=== PATIENT | male | born 1945 | race Caucasian/White ===

== ENCOUNTER 2016-07-22 20:51 | Observation (INO) | payer MEDICARE, OTHER ==
[~2016-07-22] VITALS: Ht 180.3 cm; Wt 127.0 kg
[~2016-07-22 20:51] MED LIST: BUME2TAB PO; HYDR-3580 PO; MONT10TA2 PO; POTA20IN3 PO; RIVA10 PO; TAMS0.4C67 PO; Z.0.COMMODE-3:1; Z.0.WALKERFRONT
[2016-07-22 21:00] VITALS: BP 140/77; PULSE 73; RESP 18; TEMP 98.5; O2SAT 94
[2016-07-22 21:23] VITALS: BP 137/73; PULSE 65; RESP 17; O2SAT 95
[2016-07-22 21:30] VITALS: BP 137/73; PULSE 66; RESP 18; O2SAT 96
[2016-07-22] MEDS ORDERED: SODIUM CHLORIDE 0.9% FLUSH 10 ML FLUSH IVF PRN (21:30)
--- NOTE | 2016-07-22 21:30 | PD ---
HPI Chief Complaint: Headache Time Seen by Provider: 21:13 Travel History International Travel<30 days: No Contact w/Intl Traveler<30days: No Traveled to known affect area: No History of Present Illness HPI The patient is a 71-year-old male that complains of a right scalp head pain since yesterday. He states it was of gradual onset and gradually worsening. He denies any visual problems like scotomata but may have had slight transient blurred vision in the right eye. He is not sure about the blurred vision. He has never had this type of pain before. He is not on any anticoagulants. He denies any head trauma. PFSH Past Medical History Cancer: No Cardiovascular Problems: No Diabetes: No Diminished Hearing: No Endocrine: No Genitourinary: Yes Hepatitis: No Hiatal Hernia: No Immune Disorder: No Musculoskeletal: Yes (broken ribs ribs and clavical in the past from trauma) Neurologic: No Psychiatric: No Reproductive: No Respiratory: Yes (sleep apnea , uses a machine ) Thyroid Disease: No Past Surgical History Abdominal Surgery: Yes (GALLBLADDER) AICD: No Body Medical Devices: SCREWS IN L ANKLE Cholecystectomy: Yes Joint Replacement: Yes (R HIP ) Oral Surgery: Yes (T & A) Pacemaker: No Thoracic Surgery: Yes ( TRAUMATIC PNEUMO)) Tonsillectomy: Yes Social History Alcohol Use: No Tobacco Use: No Substance Use: No Allergies-Medications (Allergen,Severity, Reaction): Coded Allergies: Quinolones (Verified Allergy, Intermediate, 07/22/16) Avelox (Verified Allergy, Mild, RASH, ITCHING, 07/22/16) Shellfish (Verified Allergy, Mild, ITCHING, THROAT SWELLING, 07/22/16) Reported Meds & Prescriptions Reported Meds & Active Scripts Active Walker Front Wheel (Walkerfront) Device 1 Unit Commode-3:1 Device 1 Unit Xarelto 10 Mg Tab (Rivaroxaban) 10 Mg Tab 10 Mg PO Q24H Hydrocodone/Acetaminophen 7.5 mg/325 mg 1 Tab 1 Tab PO Q4H PRN Reported Singulair (Montelukast Sodium) 10 Mg Tab 10 Mg PO DAILY Bumetanide 2 mg (Bumetanide) 2 Mg Tab 2 Mg PO DAILY Potassium Chloride CR 20 meq 20 Meq Tab 20 Meq PO DAILY PRN TAKE WITH LASIX Flomax (Tamsulosin HCl) 0.4 Mg Cap 0.4 Mg PO DAILY Review of Systems Except as stated in HPI: all other systems reviewed are Neg Physical Exam Narrative GENERAL: The patient is alert, oriented 3 and slight apparent distress with his right facial pain. His vital signs are normal. SKIN: Focused skin assessment warm/dry. HEAD: Atraumatic. Normocephalic. EYES: Pupils equal and round. No scleral icterus. No injection or drainage. ENT: No nasal bleeding or discharge. Mucous membranes pink and moist. No TMJ tenderness is present in the tympanic membranes are clear and the throat is clear. NECK: Trachea midline. No JVD. CARDIOVASCULAR: Regular rate and rhythm. No murmur appreciated. RESPIRATORY: No accessory muscle use. Clear to auscultation. Breath sounds equal bilaterally. GASTROINTESTINAL: Abdomen soft, non-tender, nondistended. Hepatic and splenic margins not palpable. MUSCULOSKELETAL: No obvious deformities. No clubbing. No cyanosis. No edema. NEUROLOGICAL: Awake and alert. No obvious cranial nerve deficits. Motor grossly within normal limits. Normal speech. PSYCHIATRIC: Appropriate mood and affect; insight and judgment normal. DENTAL: No loose or chipped teeth. No malocclusion. No tenderness of the teeth is noted. Data Data Last Documented VS Vital Signs Date Time Temp Pulse Resp B/P Pulse Ox O2 Delivery O2 Flow Rate FiO2 07/22/16 22:50 62 18 139/65 94 Room Air 07/22/16 21:00 98.5 Orders Complete Blood Count With Diff (07/22/16 21:21) Comprehensive Metabolic Panel (07/22/16 21:21) Westergren Sedimentation Rate (07/22/16 21:21) Ct Brain W/O Iv Contrast(Rout) (07/22/16 21:21) Ecg Monitoring (07/22/16 21:21) Iv Access Insert/Monitor (07/22/16 21:21) Oximetry (07/22/16 21:21) Sodium Chloride 0.9% Flush (Ns Flush) (07/22/16 21:30) C-Reactive Protein (Crp) (07/22/16 22:10) Admit Order (Ed Use Only) (07/22/16 23:40) Carbamazepine (Tegretol) (07/23/16 00:00) Labs Laboratory Tests Test 07/22/16 21:40 White Blood Count 3.9 TH/MM3 Red Blood Count 4.60 MIL/MM3 Hemoglobin 14.4 GM/DL Hematocrit 41.8 % Mean Corpuscular Volume 91.0 FL Mean Corpuscular Hemoglobin 31.3 PG Mean Corpuscular Hemoglobin 34.3 % Concent Red Cell Distribution Width 12.7 % Platelet Count 146 TH/MM3 Mean Platelet Volume 7.9 FL Neutrophils (%) (Auto) 45.2 % Lymphocytes (%) (Auto) 37.1 % Monocytes (%) (Auto) 15.9 % Eosinophils (%) (Auto) 1.3 % Basophils (%) (Auto) 0.5 % Neutrophils # (Auto) 1.8 TH/MM3 Lymphocytes # (Auto) 1.4 TH/MM3 Monocytes # (Auto) 0.6 TH/MM3 Eosinophils # (Auto) 0.1 TH/MM3 Basophils # (Auto) 0.0 TH/MM3 CBC Comment DIFF FINAL Differential Comment Erythrocyte Sedimentation Rate 7 mm/hr Sodium Level 142 MEQ/L Potassium Level 3.6 MEQ/L Chloride Level 106 MEQ/L Carbon Dioxide Level 28.2 MEQ/L Anion Gap 8 MEQ/L Blood Urea Nitrogen 20 MG/DL Creatinine 1.30 MG/DL Estimat Glomerular Filtration 55 ML/MIN Rate Random Glucose 165 MG/DL Calcium Level 8.3 MG/DL Total Bilirubin 0.4 MG/DL Aspartate Amino Transf 24 U/L (AST/SGOT) Alanine Aminotransferase 36 U/L (ALT/SGPT) Alkaline Phosphatase 85 U/L Total Protein 7.0 GM/DL Albumin 3.5 GM/DL MDM Medical Decision Making Medical Screen Exam Complete: Yes Emergency Medical Condition: Yes Medical Record Reviewed: Yes Interpretation(s) The CBC shows a white count of 3900 and a platelet count of 146,000 but is otherwise unremarkable. The mononuclear cells are 15.9%. The sedimentation rate is 7. The complete metabolic profile shows a BUN of 20, GFR 55, glucose 165 with calcium 8.3 but is otherwise normal. C-reactive protein is still pending. The CT brain is unremarkable. Differential Diagnosis Temporal arteritis, trigeminal neuralgia, atypical migraine headache, dental infection, TMJ pain, intracranial bleedunlikely, right facial pain etiology undetermined, herpes zoster Narrative Course The patient with his shooting, "electric shock" pains is sounding more like trigeminal neuralgia. I discussed the patient with MINO Dodd and the patient will be admitted to Dr. Casanova. We will try giving him Tegretol 200 mg twice daily to see if this helps relieve the pain. Should he get visual symptoms, we may have to give him prednisone and treat this like a temporal arteritis. He has no rash for herpes zoster. Diagnosis Primary Impression: Trigeminal neuralgia of right side of face Additional Impression: Temporal arteritis Admitting Information Admitting Physician Requests: Observation Fantasma Godoy MD Jul 22, 2016 21:30
[2016-07-22 21:45] LABS: AUTOMATED NEUTROPHIL # 1.8 TH/MM3 (1.8-7.7); BASOPHIL % 0.5 % (0.0-2.0); EOSINOPHIL # 0.1 TH/MM3 (0-0.4); EOSINOPHIL % 1.3 % (0.0-4.0); HEMATOCRIT 41.8 % (39.0-51.0); HEMO FLAGS DIFF FINAL; LYMPH % 37.1 % (9.0-44.0); LYMPHOCYTE # 1.4 TH/MM3 (1.0-4.8); MEAN CORPUSCULAR HEMOGLOBIN 31.3 PG (27.0-34.0); MEAN CORPUSCULAR HGB CONC 34.3 % (32.0-36.0); MONO % 15.9 % (0.0-8.0); NEUT % 45.2 % (16.0-70.0); PLATELET COUNT 146 TH/MM3 (150-450); RED CELL DISTRIBUTION WIDTH 12.7 % (11.6-17.2); WHITE BLOOD COUNT 3.9 TH/MM3 (4.0-11.0)
[2016-07-22 21:58] LABS: CHLORIDE 106 MEQ/L (98-107); POTASSIUM 3.6 MEQ/L (3.5-5.1); SODIUM (NA) 142 MEQ/L (136-145)
--- NOTE | 2016-07-22 22:01 | RADHPO ---
EXAM DATE/TIME: 07/22/2016 21:40 [facility] COMPARISON: CT BRAIN W/O CONTRAST, August 08, 2011, 15:17. INDICATIONS : Cephalgia. RADIATION DOSE: 60.32 CTDIvol (mGy) MEDICAL HISTORY : None SURGICAL HISTORY : None. ENCOUNTER: Initial ACUITY: 2 days PAIN SCALE: 4/10 LOCATION: Right temporal TECHNIQUE: Multiple contiguous axial images were obtained of the head. Using automated exposure control and adj ustment of the mA and/or kV according to patient size, radiation dose was kept as low as reasonably a chievable to obtain optimal diagnostic quality images. FINDINGS: CEREBRUM: The ventricles are normal for age. No evidence of midline shift, mass lesion, hemorrhage or acute in farction. No extra-axial fluid collections are seen. POSTERIOR FOSSA: The cerebellum and brainstem are intact. The 4th ventricle is midline. The cerebellopontine angle i s unremarkable. EXTRACRANIAL: The visualized portion of the orbits is intact. SKULL: The calvaria is intact. No evidence of skull fracture. CONCLUSION: Unremarkable exam. Steven Rincon MD on July 22, 2016 at 21:59 Board Certified Radiologist. This report was verified electronically.
[2016-07-22 22:02] LABS: ANION GAP 8 MEQ/L (5-15); BICARBONATE 28.2 MEQ/L (21.0-32.0); BLOOD UREA NITROGEN 20 MG/DL (7-18)
[2016-07-22 22:05] LABS: ALT (GPT) 36 U/L (12-78); AST (GOT) 24 U/L (15-37); GLOMERULAR FILTRATION RATE 55 ML/MIN (>89)
[2016-07-22 22:06] LABS: TOTAL BILIRUBIN ADULT 0.4 MG/DL (0.2-1.0)
[2016-07-22 22:08] LABS: ALKALINE PHOSPHATASE 85 U/L (45-117)
[2016-07-22 22:50] VITALS: BP 139/65; PULSE 62; RESP 18; O2SAT 94
[2016-07-23] MEDS ORDERED: carBAMazepine 200 MG TAB PO ONE
[2016-07-23 00:10] VITALS: BP 143/59; PULSE 61; RESP 17; O2SAT 98
[2016-07-23 01:00] VITALS: BP 131/81; PULSE 57; RESP 20; TEMP 97; O2SAT 96
[2016-07-23] MEDS ORDERED: SODIUM CHLORIDE 0.9% FLUSH 10 ML FLUSH IV FLUSH PRN (01:00)
[2016-07-23] MEDS ORDERED: ONDANSETRON HCL 4 MG/2 ML VIAL IVP PRN (01:00)
[2016-07-23] MEDS ORDERED: NALOXONE HCL 0.4 MG/ML AMP IV PRN (01:00)
[2016-07-23] MEDS ORDERED: ACETAMINOPHEN 325 MG TAB PO PRN (01:00)
[2016-07-23 04:00] VITALS: BP 132/78; PULSE 58; RESP 18; TEMP 96.7; O2SAT 95
[2016-07-23 08:00] VITALS: BP 131/83; PULSE 59; RESP 20; TEMP 96.6; O2SAT 97
--- NOTE | 2016-07-23 08:58 | MH ---
cc: PHILIPPE DICK MD DATE OF ADMISSION 07/22/2016 CHIEF COMPLAINT Headache for the last two days. HISTORY OF PRESENT ILLNESS This is a 71-year-old male with a past medical-surgical history significant for broken ribs and clavicles in the past from trauma, history of sleep apnea, history of obesity, cholecystectomy, screw in the left ankle, right hip replacement, traumatic pneumothorax in the past, tonsillectomy and adenoidectomy. He came to the ER at [facility] complaining of right-sided scalp headache that started two days ago and was of gradual onset and getting worse and denies any problems, denies any blurred vision, dizziness, lightheadedness, or palpitations. Denies any chest pain or shortness of breath. Denies any nausea, vomiting, diarrhea, constipation. The pain was about 6-7/10. It is off and on and at the time of examination is 1/10 worse with touching, dull to burning in character and other than that nothing significant. PAST MEDICAL AND SURGICAL HISTORY As dictated above, also positive for a history of: 1. BPH 2. Arthritis SOCIAL HISTORY Denies smoking, drinking or taking drugs. Lives at home. 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 FAMILY HISTORY Nothing significant. ALLERGIES QUINOLONE AND SHELLFISH. MEDICATIONS Include: 1. Xarelto 10 mg p.o. q.24 h 2. Lortab 7.5/325 p.o. q. 4-hour p.r.n. pain 3. Singulair 10 mg p.o. daily 4. Bumetanide 2 mg p.o. daily 5. Potassium chloride 20 mEq p.o. daily p.r.n. taken with Flomax 0.4 mg p.o. daily. REVIEW OF SYSTEMS Positive for the headache at the time examination and obesity. All other review of systems are negative. PHYSICAL EXAMINATION This is a 71-year male laying on the bed not in acute distress. VITAL SIGNS: Temperature 96.7, heart rate 58, respirations 18, blood pressure 132/78, O2 saturation 95% room air. HEENT: Normocephalic, atraumatic. EOMI. PERRL. Her oral mucosa is moist. NECK: Supple. No visible thyromegaly or neck mass. Trachea is central. CARDIOVASCULAR: Regular rate and rhythm. Respirations clear to auscultation bilaterally. ABDOMEN: Soft, nontender. Bowel sounds audible. EXTREMITIES: No cyanosis or clubbing. Full range of motion of all extremities. NEUROLOGIC: Awake, alert, and oriented x4, nonfocal deficits. SKIN: Warm and dry. PSYCH: The patient is cooperative. Mood and affect are normal. LABORATORY DATA Includes CBC showed WBC count 3.9 low, platelet count 146 low, monos 15.9 low. BMP totally unremarkable except for BUN 20 high, creatinine 1.30, glucose 165 high, calcium 8.3, GFR 55 low, C-reactive protein 0.75 high, total protein 7.0, albumin 3.5. LFTs are normal. CT of the brain was done shows unremarkable CT examination. ASSESSMENT/PLAN 1. This is a 71-year male who came to the ER diagnosed with headache, unknown etiology. Start the patient on pain medicine Lortab 7.5/325 q.6 h p.r.n. pain. Consult neurology for further recommendations. CT brain done does not show anything acute. 2. Most probably trigeminal neuralgia, further recommendation per neurology. 3. BPH. Continue with Flomax. 4. The patient is on anticoagulation. The patient does not remember why he was on. 5. DVT prophylaxis, Xarelto 10 mg p.o. daily. 6. GI prophylaxis, Protonix 40 mg p.o. daily. We are going to manage the patient on a daily basis and make recommendation on a daily basis. Philippe Dick MD EA/BELKIS /8:27 AM /8:38 AM
[2016-07-23] MEDS ORDERED: HEPARIN SODIUM - SQ 10,000 UNITS/ML VIAL SQ SCH (09:00)
[2016-07-23] MEDS ORDERED: POTASSIUM CHLORIDE 20 MEQ CONTROLLED RELEASE TAB PO PRN (09:00)
[2016-07-23] MEDS: SODIUM CHLORIDE 0.9% FLUSH 10 ML FLUSH IV FLUSH SCH ×2 (09:39→20:15)
[2016-07-23] MEDS: RIVAROXABAN 10 MG TAB PO SCH (09:40)
[2016-07-23] MEDS: BUMETANIDE 1 MG TAB PO SCH (09:40)
[2016-07-23] MEDS: PANTOPRAZOLE SOD 40 MG DELAYED RELEASE TAB PO SCH (09:40)
[2016-07-23] MEDS: carBAMazepine 200 MG TAB PO SCH (09:40)
[2016-07-23] MEDS: TAMSULOSIN HCL 0.4 MG CAP PO SCH (09:40)
[2016-07-23] MEDS: MONTELUKAST SODIUM 10 MG TAB PO SCH (09:40)
[2016-07-23] MEDS: ACETAMINOPHEN/HYDROcodone 325 MG/7.5 MG TAB PO PRN ×3 (10:51→20:17)
[2016-07-23 12:00] VITALS: BP 136/80; PULSE 59; RESP 20; TEMP 97; O2SAT 97
[2016-07-23 20:00] VITALS: BP 137/85; PULSE 58; RESP 18; TEMP 96.8; O2SAT 96
[2016-07-23] MEDS ORDERED: IOHEXOL 350 MG/ML 10 ML VIAL (for RAD DIAG) IV ONE (22:12)
--- NOTE | 2016-07-23 22:18 | RADHPO ---
EXAM DATE/TIME: 07/23/2016 19:30 [facility] COMPARISON: CT BRAIN W/O CONTRAST, July 22, 2016, 21:40. INDICATIONS : Cephalgia and right temporal region pain. Evaluate for aneurysm. IV CONTRAST: 75 cc Omnipaque 350 (iohexol) IV ; Cumulative dose for multiple exams. RADIATION DOSE: 42.20 CTDIvol (mGy) ; Combined studies MEDICAL HISTORY : None SURGICAL HISTORY : None. ENCOUNTER: Initial ACUITY: 1 week PAIN SCALE: 8/10 LOCATION: Right cranial TECHNIQUE: Volumetric scanning was performed using a multi-row detector CT scanner. The data was post processed with a variety of visualization algorithms including full volume maximum intensity projection, multi -planar sliding thin slab reformation, curved planar reformation, and surface rendering techniques. Using automated exposure control and adjustment of the mA and/or kV according to patient size, radiat ion dose was kept as low as reasonably achievable to obtain optimal diagnostic quality images. FINDINGS: There is excellent visualization of the major intracranial arteries out to the second-order branch ve ssels. There is no evidence for aneurysm, vessel truncation or stenosis, and no evidence for vascula r malformation. CONCLUSION: Intracranial arteries are within normal limits. Joaquin Hawthorne MD on July 23, 2016 at 22:14 Board Certified Radiologist. This report was verified electronically.
--- NOTE | 2016-07-23 22:21 | RADHPO ---
EXAM DATE/TIME: 07/23/2016 19:30 [facility] COMPARISON: No previous studies available for comparison. INDICATIONS : Cephalgia and temporal region pain. Evaluate for aneurysm. IV CONTRAST: 75 cc Omnipaque 350 (iohexol) IV ; Cumulative dose for multiple exams. RADIATION DOSE: 42.20 CTDIvol (mGy) ; Combined studies MEDICAL HISTORY : None SURGICAL HISTORY : None. ENCOUNTER: Initial ACUITY: 1 week PAIN SCALE: 8/10 LOCATION: cranial Elevated flow velocities and ICA/CCA ratios have been found to correlate with increased degrees of vessel stenosis, calculated as percentage of diameter relative to a normal segment of distal ICA/CCA. TECHNIQUE: Volumetric scanning was performed using a multirow detector CT scanner. The data was post processed with a variety of visualization algorithms including full-volume maximum intensity projection, multip lanar sliding thin-slab reformation, curved-planar reformation, and surface-rendering techniques. Us ing automated exposure control and adjustment of the mA and/or kV according to patient size, radiatio n dose was kept as low as reasonably achievable to obtain optimal diagnostic quality images. FINDINGS: AORTIC ARCH: There is a three-vessel origin of the great vessels from the aorta. No evidence of ostial narrowing. RIGHT CAROTID: The common carotid artery is intact. The carotid bulb has a normal configuration without ulceration o r narrowing. The internal carotid artery lumen is smooth without stenosis. The external carotid paige ry is intact. LEFT CAROTID: The common carotid artery is intact. The carotid bulb has a normal configuration without ulceration or narrowing. The internal carotid artery lumen is smooth without stenosis. The external carotid ar janis is intact. VERTEBRALS: The vertebral arteries have a symmetric diameter. No stenotic lesions are seen. CONCLUSION: Normal carotid CTA. Joaquin Hawthorne MD on July 23, 2016 at 22:18 Board Certified Radiologist. This report was verified electronically.
[2016-07-24] VITALS: BP 127/86; PULSE 58; RESP 20; TEMP 96.3; O2SAT 97
[2016-07-24] MEDS: ACETAMINOPHEN/HYDROcodone 325 MG/7.5 MG TAB PO PRN ×2 (00:16→06:27)
[2016-07-24 05:20] LABS: AUTOMATED NEUTROPHIL # 1.3 TH/MM3 (1.8-7.7); BASOPHIL % 0.6 % (0.0-2.0); EOSINOPHIL # 0.1 TH/MM3 (0-0.4); EOSINOPHIL % 2.1 % (0.0-4.0); HEMO FLAGS DIFF FINAL; LYMPH % 45.8 % (9.0-44.0); LYMPHOCYTE # 1.6 TH/MM3 (1.0-4.8); MEAN CELL VOLUME 90.8 FL (80.0-100.0); MEAN CORPUSCULAR HEMOGLOBIN 31.2 PG (27.0-34.0); MEAN CORPUSCULAR HGB CONC 34.3 % (32.0-36.0); MONO % 12.4 % (0.0-8.0); NEUT % 39.1 % (16.0-70.0); PLATELET COUNT 142 TH/MM3 (150-450); RED CELL DISTRIBUTION WIDTH 12.3 % (11.6-17.2); WHITE BLOOD COUNT 3.4 TH/MM3 (4.0-11.0)
[2016-07-24 05:35] LABS: CHLORIDE 104 MEQ/L (98-107); POTASSIUM 3.5 MEQ/L (3.5-5.1); SODIUM (NA) 144 MEQ/L (136-145)
[2016-07-24 05:43] LABS: ANION GAP 10 MEQ/L (5-15); BICARBONATE 30.4 MEQ/L (21.0-32.0); BLOOD UREA NITROGEN 17 MG/DL (7-18)
[2016-07-24 05:46] LABS: ALT (GPT) 30 U/L (12-78); AST (GOT) 18 U/L (15-37); GLOMERULAR FILTRATION RATE 74 ML/MIN (>89)
[2016-07-24 05:47] LABS: TOTAL BILIRUBIN ADULT 0.5 MG/DL (0.2-1.0)
[2016-07-24 05:49] LABS: ALKALINE PHOSPHATASE 65 U/L (45-117)
--- NOTE | 2016-07-24 07:48 | MB ---
cc: DIANNA MONSIVAIS MD DATE OF CONSULTATION 07/23/2016 REASON FOR CONSULTATION Headache HISTORY OF PRESENT ILLNESS Mr. Sanchez is a 71-year-old male who presented to the emergency room at [facility] with a complaint of right sided temporal pain that started around the upper border of the right eye and to involve the right temporal region to the level of the right ear. The patient states that the pain initially started as sharp "electric-like current" the lasted four seconds where it makes him wince and close the eye. He cannot think of any triggers, but touching or a quick move may aggravate or bring on the pain as per the patient. The patient denies any nasal stuffiness or watering or injection of the eye during these painful episodes. The episodes would come frequently and only lasts for a few seconds and then go subside. The patient denies a history of trauma, fever or night sweats, however, he states last week he had night sweats for two nights, but denies muscle aches or joint pains, loss of weight. He denies similar episode in the past. The patient denies double vision, blurred vision, slurred speech, numbness of the face or weakness or numbness of an extremity. The patient denies involvement of the cheek or the maxillary area or the right side of the face. The patient denies also any nausea or vomiting during the episode. He would have an exaggerated pain if he touches this area of the skin or this area. Denies any painful movement of the eyeballs. REVIEW OF SYSTEMS A 12-point review of systems is negative except for what is stated in the HPI. PAST MEDICAL HISTORY 1. Trauma with broken ribs and clavicle. 2. Sleep apnea, he uses C-PAP. 3. Obesity 4. Pneumonia PAST SURGICAL HISTORY 1. Cholecystectomy 2. Screws in left ankle 3. Right hip replacement. 4. Tonsillectomy SOCIAL HISTORY Denies alcohol, tobacco or illicit drug abuse. ALLERGIES QUINOLONE, AVELOX AND SHELLFISH. MEDICATIONS 1. Xarelto 2. Hydrocodone/Acetaminophen 7.5/325 3. Singulair 4. Bumetanide 5. Potassium 6. Flomax REVIEW OF SYSTEMS As 12-point review of systems is negative except what is stated in the HPI. FAMILY HISTORY Noncontributory EXAMINATION GENERAL: Awake, alert, good historian, pleasant not in acute distress HEENT: Atraumatic, normocephalic. Intact hearing. Intact vision. CARDIOVASCULAR: Regular rate and rhythm. NECK: No carotid bruits. No signs of meningeal irritation. RESPIRATORY: Clear to auscultation. No wheezes. ABDOMEN: Soft. Nontender. MUSCULOSKELETAL: No obvious deformity, clubbing, cyanosis. Moves all extremities. NEUROLOGIC: Awake, alert, oriented to time, person and place. Intact speech. Intact speech content. No dysphagia. No dysarthria. Cranial nerves II-XII are grossly intact. Muscle strength 5/5 bilateral and symmetrical upper and lower extremities. Normal tone. No abnormal movement. Sensation is intact bilateral and symmetrical. Reflexes 2+ bilateral and symmetrical. Plantars are bilaterally downgoing. [id number], [id number] are normal bilateral and symmetrical. PSYCHOLOGIC: Appropriate mood and affect. Insight and judgment normal. No hallucinations. LABORATORY DATA White blood cells 3.9, hemoglobin 14.4, platelet 146. Sodium 142, potassium 3.6 , anion gap 8, BUN 20, creatinine 1.3, glucose 165, calcium 8.3. Liver function tests normal. Total protein 7. CRP is elevated at 0.75, normal (0-3) . Sed rate is normal at 7. DIAGNOSTICS IMAGING - Head CT scan unremarkable. - CTA head and neck were reported as unremarkable. DIAGNOSTIC IMPRESSION 1. Trigeminal neuralgia/right-sided. 2. Less likely possibility is temporal arteritis. Given the intact temporal pulsation and no tenderness on the temporal region and the clinical presentation of brief sharp electric-like episodes of pain with no clear evidence of visual symptoms makes the possibility of giant cell arteritis less likely, however an elevated CRP may support a diagnosis of temporal arteritis, but the sed rate is within normal that does not go along with the diagnosis of temporal arteritis. - I discussed with the patient that to confirm the possibility of temporal arteritis, a temporal artery biopsy is warranted. He understands and agrees. - The patient received Tegretol and there was a remarkable improvement and less pain received by the patient in the trigeminal region. PLAN 1. Neuro checks q. 4 hourly. 2. I ordered a CTA of the head to rule out a possible aneurysm or structural lesion that put pressure on the trigeminal nerve or one of the intracranial vessels. 3. Continue Tegretol at 200 mg twice daily. 4. The patient is stable from the neurology standpoint,neurological exam is nonfocal and neuro diagnostic imaging was reported as unremarkable. 5. The patient can be discharged on Tegretol 200 mg twice daily.Then repeat sed rate and C-reactive protein in two weeks time 6.Followup with outpatient neurology. 7. If symptoms persist with visual changes and change in the blood markers, then may pursue a temporal artery biopsy. 7. Please call for any questions. Thank you for the opportunity to participate in the care of your patient. MD EMMA Stringer/BELKIS /12:41 AM /7:29 AM MTDBahman
[2016-07-24 08:00] VITALS: BP 145/77; PULSE 64; RESP 18; TEMP 97.5; O2SAT 97
--- NOTE | 2016-07-24 08:41 | HHI.PR ---
Subjective History of Present Illness Patient feel better no blurred vision CTA of Brain and Neck within normal limits. ok to DC per neurology d/w JOHANA Gurrola at bed side. Review of Systems Constitutional Constitutional Remarks All ROS Negative except mild headache. Neurologic Neurologic: Headache Vitals/Results Intake & Output 07/23/16 07/23/16 07/24/16 15:00 23:00 07:00 Intake Total 1550 ml 840 ml Balance 1550 ml 840 ml Intake Oral 1550 ml 840 ml # Voids 5 5 # Bowel Movements 0 1 Vital Signs Vital Signs Date Time Temp Pulse Resp B/P Pulse Ox O2 Delivery O2 Flow Rate FiO2 07/24/16 00:00 96.3 58 20 127/86 97 07/23/16 20:00 96.8 58 18 137/85 96 07/23/16 16:07 18 07/23/16 12:00 97.0 59 20 136/80 97 CBC/BMP: 07/24/16 0445 07/24/16 0445 Lab Results Laboratory Tests Test 07/24/16 04:45 White Blood Count 3.4 TH/MM3 Red Blood Count 4.40 MIL/MM3 Hemoglobin 13.7 GM/DL Hematocrit 40.0 % Mean Corpuscular Volume 90.8 FL Mean Corpuscular Hemoglobin 31.2 PG Mean Corpuscular Hemoglobin 34.3 % Concent Red Cell Distribution Width 12.3 % Platelet Count 142 TH/MM3 Mean Platelet Volume 8.1 FL Neutrophils (%) (Auto) 39.1 % Lymphocytes (%) (Auto) 45.8 % Monocytes (%) (Auto) 12.4 % Eosinophils (%) (Auto) 2.1 % Basophils (%) (Auto) 0.6 % Neutrophils # (Auto) 1.3 TH/MM3 Lymphocytes # (Auto) 1.6 TH/MM3 Monocytes # (Auto) 0.4 TH/MM3 Eosinophils # (Auto) 0.1 TH/MM3 Basophils # (Auto) 0.0 TH/MM3 CBC Comment DIFF FINAL Differential Comment Sodium Level 144 MEQ/L Potassium Level 3.5 MEQ/L Chloride Level 104 MEQ/L Carbon Dioxide Level 30.4 MEQ/L Anion Gap 10 MEQ/L Blood Urea Nitrogen 17 MG/DL Creatinine 1.00 MG/DL Estimat Glomerular Filtration 74 ML/MIN Rate Random Glucose 153 MG/DL Calcium Level 8.2 MG/DL Total Bilirubin 0.5 MG/DL Aspartate Amino Transf 18 U/L (AST/SGOT) Alanine Aminotransferase 30 U/L (ALT/SGPT) Alkaline Phosphatase 65 U/L Total Protein 6.4 GM/DL Albumin 3.3 GM/DL Physical Exam General General Appearance: Well Developed, Well Nourished, No Acute Distress, Comfortable Eyes Eye Exam: Pupils Equal, Pupils Reactive, Sclera White, Extraocular Movement Intact Throat Throat Exam: Oral Mucosa [place] & Moist, Oral Pharynx Normal Neck Neck Exam: Neck Supple, Trachea Midline Pulmonary Resp Exam: Clear Bilaterally, Breath Sounds Equal, No Distress Cardiology CV Exam: Regular, Normal Sinus Rhythm Gastrointestinal/Abdomen GI Exam: Soft, Non-Tender, Bowel Sounds Present Musculoskeletal MS Exam: Normal Tone Integumentary Skin Exam: Clear, Warm, Dry, Intact Extremeties Extremities Exam: No Edema Neurologic Neuro Exam: Alert, Awake, Oriented, Speech Clear, Moving All Extremities, No Focal Deficits Psychiatric Psych Exam: Appropriate Responses VTE Prophylaxis VTE Prophylaxis Meds: Heparin PUD Prophylasis PUD Prophylaxis: Protonix Assessment/Plan Assessment/Plan ASSESSMENT/PLAN 1. This is a 71-year male who came to the ER diagnosed with headache, most likely trigaminal neurolgia. patient on pain medicine Lortab 7.5/325 q.6 h p.r.n. pain. neurology input noted for further recommendations. CT brain done does not show anything acute. CTA of Brain and Neck within normal limits, 2. Most probably trigeminal neuralgia, started on depakote 200 mg PO BID...further recommendation per neurology. 3. BPH. Continue with Flomax. 4. The patient is on anticoagulation. The patient does not remember why he was on. 5. DVT prophylaxis, Xarelto 10 mg p.o. daily. 6. GI prophylaxis, Protonix 40 mg p.o. daily. ok to DC home today. f/u with PCP/ Neurology 1 week. condition at discharge good Activity as tolerated. Diet Cardic medicine see discharge medicine list. Discussed Condition with: Patient Philippe Casanova MD Jul 24, 2016 08:41
[2016-07-24] MEDS ORDERED: CARB200T PO (08:44)
[2016-07-24] MEDS: PANTOPRAZOLE SOD 40 MG DELAYED RELEASE TAB PO SCH (08:49)
[2016-07-24] MEDS: RIVAROXABAN 10 MG TAB PO SCH (08:49)
[2016-07-24] MEDS: carBAMazepine 200 MG TAB PO SCH (08:51)
[2016-07-24] MEDS: MONTELUKAST SODIUM 10 MG TAB PO SCH (08:53)
[2016-07-24] MEDS: BUMETANIDE 1 MG TAB PO SCH (08:53)
[2016-07-24] MEDS: TAMSULOSIN HCL 0.4 MG CAP PO SCH (08:53)
[2016-07-24] MEDS: SODIUM CHLORIDE 0.9% FLUSH 10 ML FLUSH IV FLUSH SCH (08:54)
== END 2016-07-24 09:39 | disposition home or self-care (01) ==
LOC: PHED 20:51 → PHEDA 23:42 → PH3A 07-23 00:25
PROVIDERS: ADMIT Family Medicine; ATTEND Family Medicine
DX: G50.0 Trigeminal neuralgia (principal); G47.30 Sleep apnea, unspecified; N40.0 Benign prostatic hyperplasia without lower urinary tract symptoms; E66.9 Obesity, unspecified; Z99.81 Dependence on supplemental oxygen; Z91.013 Allergy to seafood; Z88.1 Allergy status to other antibiotic agents; Z96.641 Presence of right artificial hip joint; Z68.39 Body mass index [BMI] 39.0-39.9, adult
CPT/HCPCS: 70450; 70496; 70498; 80053; 85025; 85652; 86140; 99285; G0378; Q9967